=== PATIENT | female | born 1980 | race Caucasian/White ===

== ENCOUNTER 2016-10-25 09:46 | Emergency (ER) | payer OTHER ==
[~2016-10-25] VITALS: Ht 157.5 cm; Wt 55.8 kg
[~2016-10-25 09:46] MED LIST: ACZONE; BLACK COHOSH40 M1 PO; CELESTONE0.6 MG/5 M TOP; FLEXERIL10 MG PO; HYDROXYZINE50 MG PO; IBUPROFEN600 MG PO; MAGNESIUM CITR100 MG PO; MASON NATURAL2000 IU PO; MEDROXYPROG150 MG/ML IM; PERCOCET 325 MG1 TA2 PO; TRETINOIN 0.025% TOP
[2016-10-25 09:53] VITALS: BP 112/78
--- NOTE | 2016-10-25 09:53 | ED ANKLE/FOOT INJURY COMPLAINT ---
History of Present Illness General Chief Complaint: Foot or Ankle Injury Stated Complaint: "I SLIPPED AND FELL ON ICE" LEFT FOOT Source: patient, old records Exam Limitations: no limitations Vital Signs & Intake/Output Vital Signs & Intake/Output Vital Signs Date Time Temp Pulse Resp B/P Pulse O2 O2 Flow FiO2 Ox Delivery Rate 10/25 0957 97.5 10/25 0953 97.5 90 20 112/78 100 Room Air Room Air Allergies Coded Allergies: NO KNOWN ALLERGIES (07/11/14) Reconcile Medications No Known Home Medications Triage Nurses Notes Reviewed? yes Occurred: last week Duration: day(s): (2-3), constant, waxing and waning Timing: recent history Severity: mild Severity Numbers: 4 Pain/Injury Location: Left: Foot. Method of Injury: twisted Modifying Factors: Improves With: rest. Worsens With: movement. Associated Symptoms: bruising HPI: 35-year-old female presents complaining of lateral left foot pain for the past 3 days after she twisted her foot when she slipped on ice. She states she's had left aching pain since worse with movement and palpation. She has been able to ambulate however. She is not taken anything for her symptoms. There is no other foot or ankle or leg pain there is no other injury from the fall, no head strike no LOC. There are no other modifying factors or associated symptoms. Pain is aching and constant nonradiating Past History Travel History Traveled to [place] past 21 day No Medical History Any Pertinent Medical History? see below for history Neurological: NONE EENT: NONE Cardiovascular: MVP Respiratory: NONE Gastrointestinal: NONE Hepatic: NONE Renal: KIDNEY STONES Musculoskeletal: NONE Psychiatric: NONE Endocrine: NONE Blood Disorders: NONE Cancer(s): NONE DEAN OF FACULTY/Reproductive: NONE Other Medical Hx: LUPUS Surgical History Surgical History: non-contributory Psychosocial History What is your primary language [place] Family History Hx Contributory? No Review of Systems Review of Systems Constitutional: Reports: see HPI. All Other Systems: Reviewed and Negative Comments Review of systems: See HPI, All other systems negative. Constitutional, no chills no fever, no malaise HEENT: no sore throat no congestion, no ear pain Cardiovascular: No chest pain , no palpitation Skin, no rashes, no change in skin Respiratory: No dyspnea no cough no sputum GI: No nausea no vomiting, no diarrhea, : No dysuria Muscle skeletal: joint pain, no joint swelling, no back pain, no neck pain, Neurologic: No numbness, no headache Psych: No stress Heme/endocrine: No bruising no bleeding Immunology: No lymphadenopathy Physical Exam Physical Exam General Appearance: well developed/nourished, alert, awake Leg/Knee/Thigh Left: normal range of motion Comments: Well-developed well-nourished patient in no apparent distress. HEENT: Atraumatic, extraocular motion intact Neck: Supple, FROM Back: FROM Cardiovascular: Regular rate and rhythms no murmurs Respiratory: No respiratory distress. Patient speaking in full complete sentences. Breath sounds clear to auscultation bilaterally: NO W/R/R Hip/Pelvis: Atraumatic/Stable. FROM. No pain with pelvic compression Knee: Atraumatic/stable. FROM. No joint swelling, no effusion. No laxity. No pain with ROM Leg: Atraumatic. Nontender. No edema, 5 out of 5 strength in the lower extremity, normal dorsiflexion of great toe bilaterally, gross sensation is intact Ankle/Foot: There is ecchymosis and tenderness palpation over the lateral left foot, there is no swelling, Skin intact. FROM of ankle and foot, there is no tenderness over the medial or lateral malleolus. No swelling, no effusion. No laxity on exam Pulses: Normal/equal DP/PT pulses bilaterally. Brisk cap refill upper Extremities: full range of motion Neuro: Alert and oriented x3 Skin: Warm & dry;No appreciable rash on exposed skin Psych: Mood affect normal, normal memory normal judgment. Progress Differential Diagnosis: cellulitis, gout, fracture, dislocation, sprain, contusion, compartmental syndrome Plan of Care: d/w the pt her xray results need for supportive care, rest, ice tylenol or motrin. she is declining crutches despite myrecommendations, pt amb with steady gait on dc Diagnostic Imaging: Viewed by Me: Radiology Read. Discussed w/RAD: Radiology Read. Radiology Impression: PATIENT: AILYN GRANADO PRESENT AGE: 35 PATIENT ACCOUNT NO: [id number] : 82 LOCATION: [facility] ORDERING PHYSICIAN: ADEEL QUINTANA SERVICE DATE: 10/25/16 EXAM TYPE: RAD - XRY-FOOT COMPLETE, LEFT EXAMINATION: XR FOOT, LEFT CLINICAL INFORMATION: Pain, status post fall on ice COMPARISON: None TECHNIQUE: AP, lateral, and oblique views of the left foot. FINDINGS: The alignment is normal. No fracture or dislocation or acute osseous abnormality is seen. IMPRESSION: Normal alignment. No fracture or dislocation or acute osseous abnormality is seen. DICTATED BY: DUSTIN GRANT MD DATE/TIME DICTATED:10/25/161022 BACK OFFICE MEDICAL ASSISTANT:HAI DATE/TIME TRANSCRIBED:10/25/161022 CONFIDENTIAL, DO NOT COPY WITHOUT APPROPRIATE AUTHORIZATION. <Electronically signed in Other Vendor System> SIGNED BY: DUSTIN GRANT MD 10/25/16 1028 Departure Departure Time of Disposition: 1030 Disposition: HOME OR SELF CARE Condition: Stable Clinical Impression Primary Impression: Foot sprain Referrals: ERUM MARCUS APRN Additional Instructions: REST, ICE, TYLENOL OR MOTRIN FOR PAIN. KEEP FOOT ELEVATED. MARIBEL WRAP DISCUSSED. FOLLOW UP WITH YOUR PMD, RETURN WITH ANY CONCERNS Departure Forms: Customer Survey General Discharge Information Prescriptions: Current Visit Scripts No Known Home Medications
--- NOTE | 2016-10-25 10:28 | RADIOLOGY REPORT ---
EXAMINATION: XR FOOT, LEFT CLINICAL INFORMATION: Pain, status post fall on ice COMPARISON: None TECHNIQUE: AP, lateral, and oblique views of the left foot. FINDINGS: The alignment is normal. No fracture or dislocation or acute osseous abnormality is seen. IMPRESSION: Normal alignment. No fracture or dislocation or acute osseous abnormality is seen.
== END 2016-10-25 10:36 ==
LOC: ERH 09:46
DX: S93.602A Unspecified sprain of left foot, initial encounter (principal); W18.40XA Slipping, tripping and stumbling without falling, unspecified, initial encounter
CPT/HCPCS: 73630-LT